=== PATIENT | female | born 1960 | race Caucasian/White ===

== ENCOUNTER 2020-08-08 09:28 | Day surgery (SDC) | payer OTHER ==
[2020-08-05 09:57] LABS: BASOPHILS % (AUTO) 1 % (0-1); EOSINOPHILS % (AUTO) 2 % (1-7); LYMPHOCYTES % (AUTO) 31 % (22-44); MEAN CORPUSCULAR HEMOGLOBIN 31.7 pg (27.0-34.8); MEAN CORPUSCULAR HGB CONC 34.6 g/dL (32.4-35.8); MEAN PLATELET VOLUME 7.2 fL (7.4-10.4); MONOCYTES % (AUTO) 7 % (2-9); NEUTROPHILS % (AUTO) 60 % (42-75); PLATELET COUNT 224 x10^3/uL (130-400); RED BLOOD COUNT 4.07 x10^6/uL (3.82-5.3); RED CELL DISTRIBUTION WIDTH 13.8 % (9.6-15.2)
[~2020-08-08] VITALS: Ht 165.1 cm; Wt 60.8 kg
[~2020-08-08 09:28] MED LIST: ALBU18HF INH; BUPIVACAINE/PF 0.5% ONE; CEFAZOLIN 1,000 MG ONE; CETI10CA PO; CYAN1TAB29 PO; DEXAMETHASONE 4 MG/ML, 1ML ONE; EPINEPHRINE 1 MG/ML, 1ML ONE; ESTR30CR VG; FREM225S INJ; GENTAMICIN 80 MG/2 ML ONE; GLUC1CAP40 PO; ISOSULFAN BLUE 10 MG/ML, 5ML IV ONE; LYSI500T8 PO; MULT-658 PO; PROP10DR14 EACHEYE; ROPI1TAB4 PO; SENN1TAB67 PO; SUMA20SP NS; VANCOMYCIN 1,000 MG ONE; ZOLP10TA PO
[2020-08-08] MEDS ORDERED: LACTATED RINGERS 1,000 ML IV SCH (10:00)
[2020-08-08] MEDS ORDERED: CHLORHEXIDINE 15 ML UDC PO ONE (10:00)
[2020-08-08] MEDS ORDERED: CHLORHEXIDINE 15 ML UDC ONE (10:02)
[2020-08-08] MEDS ORDERED: FENTANYL PF 100 MCG/2ML ONE ×2 (11:43→13:49)
[2020-08-08] MEDS ORDERED: MIDAZOLAM 1 MG/ML, 2ML ONE (11:43)
[2020-08-08] MEDS ORDERED: PROPOFOL 100 ML ONE (11:46)
[2020-08-08] MEDS ORDERED: HYDROmorphone 1 MG/ML, 1ML INJ ONE (13:05)
[2020-08-08] MEDS ORDERED: GLYCOPYRROLATE 0.2MG/1ML, 5ML ONE (14:09)
[2020-08-08] MEDS ORDERED: PROPOFOL 10 MG/ML, 20ML ONE (14:09)
[2020-08-08] MEDS ORDERED: NEOSTIGMINE 1 MG/ML, 10ML ONE (14:09)
[2020-08-08] MEDS ORDERED: ONDANSETRON 2MG/ML, 2ML ONE (14:09)
[2020-08-08] MEDS ORDERED: ROCURONIUM 10MG/ML,5ML ONE (14:09)
[2020-08-08] MEDS ORDERED: CEFAZOLIN 1,000 MG ONE (14:09)
[2020-08-08] MEDS ORDERED: SUCCINYLCHOLINE 20 MG/ML, 10ML ONE (14:09)
[2020-08-08] MEDS ORDERED: ACETAMINOPHEN 650 MG/20.3 ML UDC ONE (14:12)
[2020-08-08] MEDS ORDERED: OXYcodone 5 MG/5 ML ORAL.SOL UDC ONE (14:13)
[2020-08-08] MEDS ORDERED: MEPERIDINE/PF 25MG/ML,1ML ONE (14:13)
[2020-08-08] MEDS ORDERED: hydrALAzine 20 MG/ML, 1ML IV PRN (14:30)
[2020-08-08] MEDS ORDERED: ONDANSETRON 2MG/ML, 2ML IVPush PRN (14:30)
[2020-08-08] MEDS ORDERED: HYDROmorphone 1 MG/ML, 1ML INJ IVPush PRN (14:30)
[2020-08-08] MEDS ORDERED: MEPERIDINE/PF 25MG/0.5ML IVPush PRN (14:30)
[2020-08-08] MEDS ORDERED: LABETALOL 5MG/ML, 20ML IV PRN (14:30)
[2020-08-08] MEDS ORDERED: PROMETHAZINE 25 MG/ML, 1ML IVPush PRN (14:30)
[2020-08-08] MEDS ORDERED: FENTANYL PF 100 MCG/2ML IV PRN (14:30)
[2020-08-08] MEDS ORDERED: ACETAMINOPHEN 325 MG TABLET PO PRN (14:30)
[2020-08-08] MEDS ORDERED: OXYcodone 5 MG/5 ML ORAL.SOL UDC PO PRN (14:30)
== END 2020-08-08 16:40 | disposition home or self-care (01) ==
LOC: OUT 09:28 → EDSTATUS 12:00 → OUT 16:40
PROVIDERS: ATTEND Surgery
DX: C50.812 Malignant neoplasm of overlapping sites of left female breast (principal); C77.3 Secondary and unspecified malignant neoplasm of axilla and upper limb lymph nodes; N65.1 Disproportion of reconstructed breast; G43.909 Migraine, unspecified, not intractable, without status migrainosus; G25.81 Restless legs syndrome; G47.00 Insomnia, unspecified; Z17.0 Estrogen receptor positive status [ER+]; Z20.822 Contact with and (suspected) exposure to COVID-19; Z79.899 Other long term (current) drug therapy; Z87.891 Personal history of nicotine dependence; Z88.5 Allergy status to narcotic agent; Z88.8 Allergy status to other drugs, medicaments and biological substances; Z82.49 Family history of ischemic heart disease and other diseases of the circulatory system; Z83.3 Family history of diabetes mellitus
CPT/HCPCS: 15570; 19301; 19318; 36415; 38525; 38792; 76098; 85025; 88305; 88307; 88329; 88333; 93005; A9541; C1729; J0171; J0330; J0690; J1170; J2175; J2250; J2405; J2704; J2710; J3010; J7120; U0003; U0005; J1100; J3370; J1580